=== PATIENT | female | born 1975 | race American Indian/Alaskan Native ===

== ENCOUNTER 2016-05-22 07:46 | Inpatient (IN) | payer MEDICAID ==
[2016-05-22 11:24] LABS: Hemoglobin 10.3 gm/dl (10.1-14.3); Mean Corpuscular HGB Conc 32 % (30-34); Mean Corpuscular Volume 78 fl (79-97); Platelet Count 219 K/mm3 (140-440); Red Blood Count 4.08 M/mm3 (3.65-5.03); Red Cell Distribution Width 16.4 % (13.2-15.2); White Blood Count 8.2 K/mm3 (4.5-11.0)
[2016-05-22] MEDS ORDERED: PITOCin/NS 20 UNIT/1000ML DRIP 20 UNITS/1,000 ML BAG IV SCH ×2 (11:30→21:58)
[2016-05-22] MEDS ORDERED: SUBLIMAZE IV PRN (11:30)
[2016-05-22] MEDS ORDERED: STADOL IV PRN (11:30)
[2016-05-22] MEDS ORDERED: ePHEDrine SULFATE IV PRN ×2 (11:30→13:45)
[2016-05-22] MEDS ORDERED: PITOCin/NS 30 UNIT/500ML 30 UNITS/500 ML BAG IV SCH ×2 (11:30)
[2016-05-22] MEDS: LACTATED RINGERS 1,000 ML IV SCH ×2 (11:38→14:56)
[2016-05-22 11:39] LABS: Mean Corpuscular Hemoglobin 25 pg (28-32)
[2016-05-22] MEDS ORDERED: BRETHINE IVP PRN (12:00)
[2016-05-22] MEDS ORDERED: BRETHINE SUB-Q PRN (12:00)
[2016-05-22] MEDS ORDERED: XYLOCAINE 2% INFILTRATI ONE (12:00)
[2016-05-22] MEDS ORDERED: MINERAL OIL PO PRN (12:00)
--- NOTE | 2016-05-22 13:33 | History and Physical Report ---
<MARK CERRATO - Last Filed: 05/22/16 13:28> History of Present Illness Date of examination: 05/22/16 Date of admission: 05/22/16 07:46 History of present illness: 41 yo LMP EDC 05/26/16 at 39.3 weeks gestation presented this morning for induction of labor for IUGR. Second trimester entry into care at 16 weeks gestation. course complicated by AMA with [facility] xing't. Declined genetic screening. Limited care with practice, seeing [facility] consistently instead of [facility]. False positive of trichomonas. IUGR this with [facility] recommendation for induction. She is GBS negative Past History Past Medical History: no pertinent history, other (previous pregnany IUGR with induction of labor) Family/Genetic History: diabetes, hypertension Social history: no significant social history - Obstetrical History Expected Date of Delivery: 05/26/16 Actual Gestation: 39 Week(s) 3 Day(s) : 2 Para: 1 Number of Living Children: 1 Medications and Allergies Allergies Allergy/AdvReac Type Severity Reaction Status Date / Time No Known Allergies Allergy Verified 01/06/15 12:47 Home Medications Medication Instructions Recorded Confirmed Last Taken Type Ferrous Sulfate [Ferrous Sulfate] 325 mg PO DAILY 01/20/15 01/20/15 01/19/15 09: 00 History HYDROcodone/APAP 5-325 [[place] 1 each PO Q6HR PRN #20 tablet 01/20/15 Unknown Rx 5/325] Ibuprofen [Motrin] 800 mg PO Q8HR PRN #60 tablet 01/20/15 Unknown Rx Vit-Fe Fumar-FA [ 1 tab PO QDAY 01/20/15 01/20/15 01/19/15 09: 00 History Vitamin] Active Meds: Active Medications Butorphanol Tartrate (Stadol) 2 mg IV Q2H PRN PRN Reason: Pain , Severe (7-10) Ephedrine Sulfate (Ephedrine Sulfate) 10 mg IV Q2M PRN PRN Reason: Hypotension Stop: 05/22/16 21:00 Fentanyl (Sublimaze) 100 mcg IV Q2H PRN PRN Reason: Labor Pain Lactated Ringer's (Lactated Ringers) 1,000 mls @ 125 mls/hr IV DIRECT WALTER Last Admin: 05/22/16 11:38 Dose: 125 mls/hr Oxytocin/Sodium Chloride (Pitocin/Ns 20 Unit/1000ml Drip) 20 units in 1,000 mls @ 125 mls/hr IV DIRECT WALTER Oxytocin/Sodium Chloride (Pitocin/Ns 30 Unit/500ml) 30 units in 500 mls @ 4 mls /hr IV TITR WALTER PRN Reason: Protocol Last Titration: 05/22/16 13:26 Dose: 24 ml/hr, 24 mls/hr Oxytocin/Sodium Chloride (Pitocin/Ns 30 Unit/500ml) 30 units in 500 mls @ 1 mls /hr IV TITR WALTER; 1 MILLIUNITS/MIN PRN Reason: Protocol Mineral Oil (Mineral Oil) 30 ml PO QHS PRN PRN Reason: Constipation Review of Systems All systems: negative - Vital Signs Vital signs: Vital Signs Temp Resp 97.5 F L 16 05/22/16 08:00 05/22/16 08:00 Temp Pulse Resp BP Pulse Ox 97.5 F L 86 16 111/60 99 05/22/16 08:00 05/22/16 12:50 05/22/16 08:00 05/22/16 12:11 05/22/16 12:50 - Physical Exam Abdomen: Positive: normal appearance Genitourinary (Female): Positive: normal external genitalia - Obstetrical FHR: category 1 Uterine Contraction Monitor Mode: External Cervical Dilatation: 3 Cervical Effacement Percentage: 50 station: -4 Uterine Contraction Frequency (min): 2-3 Uterine Contraction Duration: 40-60 Uterine Contraction Pattern: Regular Results Result Diagrams: 05/22/16 10:45 Abnormal lab results 05/22/16 Range/Units 10:45 MCV 78 L (79-97) fl MCH 25 L (28-32) pg RDW 16.4 H (13.2-15.2) % All other labs normal. Assessment and Plan A: IUP at 39.3 weeks gestation IUGR Induction of labor Inconclusive U/S for presentation, however VE vtx P: U/s per tech <JACKIE LANE - Last Filed: 05/22/16 17:26> History of Present Illness Date of admission: 05/22/16 07:46 Chief complaint: Induction of Labor Past History Past Medical History: no pertinent history, other (previous IUGR with induction of labor) Past Surgical History: no surgical history Family/Genetic History: diabetes, hypertension Social history: no significant social history - Obstetrical History Hx # Term Pregnancies: 1 Number of Pregnancies: 0 Spontaneous Abortions: 0 Induced : 0 Medications and Allergies Active Meds: Active Medications Butorphanol Tartrate (Stadol) 2 mg IV Q2H PRN PRN Reason: Pain , Severe (7-10) Ephedrine Sulfate (Ephedrine Sulfate) 10 mg IV Q2M PRN PRN Reason: Hypotension Stop: 05/22/16 21:00 Fentanyl (Sublimaze) 100 mcg IV Q2H PRN PRN Reason: Labor Pain Lactated Ringer's (Lactated Ringers) 1,000 mls @ 125 mls/hr IV DIRECT WALTER Last Admin: 05/22/16 14:56 Dose: 125 mls/hr Oxytocin/Sodium Chloride (Pitocin/Ns 20 Unit/1000ml Drip) 20 units in 1,000 mls @ 125 mls/hr IV DIRECT WALTER Oxytocin/Sodium Chloride (Pitocin/Ns 30 Unit/500ml) 30 units in 500 mls @ 4 mls /hr IV TITR WALTER PRN Reason: Protocol Last Titration: 05/22/16 13:26 Dose: 24 ml/hr, 24 mls/hr Oxytocin/Sodium Chloride (Pitocin/Ns 30 Unit/500ml) 30 units in 500 mls @ 1 mls /hr IV TITR WALTER; 1 MILLIUNITS/MIN PRN Reason: Protocol Fentanyl/Bupivacaine/Sodium Chlor (Fentanyl-Bupiv 2 Mcg/Ml-0.125%) 200 mcg in 100 mls @ 12 mls/hr EPIDURAL TITR WALTER PRN Reason: Protocol Last Admin: 05/22/16 15:55 Dose: 12 mls/hr Mineral Oil (Mineral Oil) 30 ml PO QHS PRN PRN Reason: Constipation Review of Systems All systems: negative - Vital Signs Vital signs: Vital Signs Temp Resp 97.5 F L 16 05/22/16 08:00 05/22/16 08:00 Temp Pulse Resp BP Pulse Ox 97.5 F L 85 16 123/74 99 05/22/16 08:00 05/22/16 16:50 05/22/16 08:00 05/22/16 16:50 05/22/16 15:53 - Physical Exam Abdomen: Positive: soft (obese, gravid ) Uterus: Positive: enlarged (gravid ) Extremities: Positive: normal - Obstetrical FHR: category 1 Uterine Contraction Monitor Mode: External Uterine Contraction Pattern: Regular Uterine Tone Measurement Phase: Resting Uterine Contraction Intensity: Moderate Results Result Diagrams: 05/22/16 10:45 Abnormal lab results 05/22/16 Range/Units 10:45 MCV 78 L (79-97) fl MCH 25 L (28-32) pg RDW 16.4 H (13.2-15.2) % All other labs normal.
[2016-05-22] MEDS ORDERED: NARCAN 2 MG/2 ML IV PRN (13:45)
--- NOTE | 2016-05-22 13:45 | Anesthesia Consultation ---
Anesthesia Consult and Med Hx Date of service: 05/22/16 - Airway Anesthetic Teeth Evaluation: Good ROM Head & Neck: Adequate Mental/Hyoid Distance: Adequate Mallampati Class: Class III Intubation Access Assessment: Possibly Difficult - Pre-Operative Health Status ASA Pre-Surgery Classification: ASA3 Proposed Anesthetic Plan: General, Spinal - Pulmonary Hx Asthma: No COPD: No Hx Pneumonia: No - Cardiovascular System Hx Hypertension: No - Central Nervous System Hx Seizures: No Hx Psychiatric Problems: No - Endocrine Hx Renal Disease: No Hx End Stage Renal Disease: No Hx Hypothyroidism: No Hx Hyperthyroidism: No - Hematic Hx Anemia: No Hx Sickle Cell Disease: No - Other Systems Hx Alcohol Use: Yes (before , occasionally) Hx Obesity: Yes (Morbid obesity)
[2016-05-22] MEDS ORDERED: fentaNYL-BUPIV 2 MCG/ML-0.125% 200 MCG/100 ML BAG EPIDURAL SCH (14:00)
[2016-05-22] MEDS ORDERED: XYLOCAINE MPF 2% ONE (16:16)
[2016-05-22] MEDS ORDERED: ZOFRAN ONE (16:29)
[2016-05-22] MEDS ORDERED: ZOFRAN IV ONE (16:37)
--- NOTE | 2016-05-22 17:27 | Event Note ---
Date: 05/22/16 Pt more comfortable with epidural. SVE: 100/0 + large forebag. AROM- clear fluid. Category II tracing. Continue routine intrapartum care. Close monitoring of maternal and status.
[2016-05-22] MEDS ORDERED: PEPCID IV SCH (18:00)
--- NOTE | 2016-05-22 18:21 | Procedure Note ---
OB Delivery Note - Delivery Date of Delivery: 05/22/16 Surgeon: JACKIE LANE Estimated blood loss: 300cc - Vaginal Delivery presentation: vertex Delivery position: OA Intrapartum events: decreased FHT variability, mult.variable deceleratio Delivery induction: oxytocin Delivery augmentation: pitocin Delivery monitor: external FHT, external uterine Route of delivery: Delivery placenta: spontaneous Delivery cord: 3 umbilical vessels, other (body cord) Episiotomy: none Delivery laceration: 1st degree Delivery repair: vicryl Anesthesia: epidural Delivery comments: Pt progressed to complete/complete/+2 and pushed to deliver a viable male over intact perineum via under epidural anesthesia. Head delivered quickly followed by shoulders and body. bulb suctioned at perineum. Cord clamped and cut and handed to nurse in attendance. Placenta delivered spontaneously (intact). Vaginal and perineum explored. First degree perineal laceration repaired with two [id number] of 3-0 Vicryl. Hemostasis noted. EBl 300 mL. - A at 1 minute: 8 at 5 minutes: 9 Gender: Male (2725g (6lb 0oz))
[2016-05-22] MEDS ORDERED: BENADRYL PO PRN (21:58)
[2016-05-22] MEDS ORDERED: PHENERGAN PO PRN (21:58)
[2016-05-22] MEDS ORDERED: TYLENOL PO PRN (21:58)
[2016-05-22] MEDS ORDERED: ZOFRAN IV PRN (21:58)
[2016-05-22] MEDS ORDERED: DERMOPLAST TP PRN (21:58)
[2016-05-22] MEDS ORDERED: DULCOLAX PR PRN (21:58)
[2016-05-22] MEDS ORDERED: NORCO 5/325 PO PRN (21:58)
[2016-05-22] MEDS ORDERED: MILK OF MAGNESIA PO PRN (21:58)
[2016-05-22] MEDS ORDERED: SODIUM CHLORIDE FLUSH SYRINGE 10 ML IV NR (21:58)
[2016-05-22] MEDS ORDERED: LANSINOH TP PRN (21:58)
[2016-05-22] MEDS ORDERED: TUCKS PAD TP PRN (21:58)
[2016-05-22] MEDS ORDERED: PHENERGAN PR PRN (21:58)
[2016-05-22] MEDS ORDERED: PEPCID PO SCH (22:00)
[2016-05-23] MEDS: FEOSOL PO SCH ×2 (01:29→10:15)
[2016-05-23] MEDS: MOTRIN PO SCH ×3 (06:00→12:00)
[2016-05-23] MEDS ORDERED: BOOSTRIX IM ONE (06:00)
[2016-05-23] MEDS ORDERED: M-M-R II VACCINE SUB-Q ONE (06:00)
--- NOTE | 2016-05-23 07:54 | Progress Note ---
Assessment and Plan O: VSS AF PP H/H: pending A:StabLe PP Day 1 P: Routine PP orders Subjective - Subjective Date of service: 05/23/16 Interval history: 41 yo LMP EDC 05/26/16 at 39.3 weeks gestation presented this morning for induction of labor for IUGR. Second trimester entry into care at 16 weeks gestation. course complicated by AMA with [facility] comang't. Declined genetic screening. Limited care with practice, seeing [facility] consistently instead of [facility]. False positive of trichomonas. IUGR this with [facility] recommendation for induction. She is GBS negative Patient reports: appetite normal, voiding normally, pain well controlled, flatus , ambulating normally : doing well Objective - Vital Signs Latest vital signs: Vital Signs Temp Pulse Pulse Resp BP BP Pulse Ox 05/23/16 05:30 97.8 F 85 18 99/58 05/23/16 01:35 99.6 F 96 H 18 106/68 05/22/16 20:38 99.3 F 93 H 18 116/76 05/22/16 19:34 92 H 138/83 05/22/16 19:27 85 99 05/22/16 19:22 97 H 99 05/22/16 19:19 90 130/86 05/22/16 19:17 86 100 05/22/16 19:12 84 100 05/22/16 19:07 85 100 05/22/16 19:04 85 144/93 05/22/16 19:02 88 100 05/22/16 18:57 86 100 05/22/16 18:52 84 100 05/22/16 18:49 75 139/87 05/22/16 18:47 84 100 05/22/16 18:42 78 100 05/22/16 18:37 76 100 05/22/16 18:35 79 125/81 05/22/16 18:32 88 100 05/22/16 18:23 73 119/67 05/22/16 18:15 97.3 F L 20 05/22/16 16:50 85 123/74 05/22/16 16:36 98 H 104/59 05/22/16 16:19 77 122/67 05/22/16 16:00 84 140/62 05/22/16 15:55 84 149/72 05/22/16 15:53 89 99 05/22/16 15:49 96 H 147/81 05/22/16 15:48 95 H 98 05/22/16 15:45 100 H 162/94 05/22/16 15:43 94 H 98 05/22/16 15:41 92 H 140/79 05/22/16 15:38 82 99 05/22/16 15:35 89 121/77 05/22/16 15:33 101 H 99 05/22/16 15:30 95 H 145/78 05/22/16 15:28 78 97 05/22/16 15:23 85 123/81 97 05/22/16 15:21 83 136/79 05/22/16 15:18 83 128/68 99 05/22/16 15:17 85 129/69 05/22/16 15:13 86 99 05/22/16 15:09 85 139/71 05/22/16 15:08 91 H 100 05/22/16 15:07 94 H 150/74 05/22/16 15:05 96 H 163/92 05/22/16 15:03 81 100 05/22/16 15:02 76 129/80 05/22/16 14:58 101 H 128/81 100 05/22/16 14:52 71 100 05/22/16 14:25 104 H 99 05/22/16 14:21 100 H 154/93 05/22/16 14:20 89 100 05/22/16 13:35 89 114/79 99 05/22/16 12:50 86 99 05/22/16 12:45 91 H 99 05/22/16 12:40 91 H 100 05/22/16 12:35 90 100 05/22/16 12:30 109 H 99 05/22/16 12:25 90 98 05/22/16 12:20 102 H 98 05/22/16 12:15 88 98 05/22/16 12:11 103 H 111/60 05/22/16 12:10 100 H 98 05/22/16 09:47 94 H 100 05/22/16 09:42 87 100 05/22/16 09:37 87 100 05/22/16 09:32 94 H 99 05/22/16 09:27 97 H 98 05/22/16 09:22 100 H 98 05/22/16 09:17 105 H 99 05/22/16 09:12 84 99 05/22/16 09:07 93 H 98 05/22/16 09:02 104 H 97 05/22/16 08:57 96 H 98 05/22/16 08:52 99 H 99 05/22/16 08:47 92 H 98 05/22/16 08:42 95 H 98 05/22/16 08:37 92 H 97 05/22/16 08:32 85 97 05/22/16 08:27 108 H 97 05/22/16 08:22 108 H 98 05/22/16 08:17 107 H 134/75 99 05/22/16 08:00 97.5 F L 16 Intake and Output 05/22/16 05/23/16 05/23/16 22:59 06:59 14:59 Intake Total 480 Output Total 400 400 Balance -400 80 Intake: Intake, Free Water 480 Output: Urine 400 400 Void 400 400 Other: Total, Output Amount 400 400 # Voids Void 1 Estimated Blood Loss 300 - Exam Breasts: Present: deferred Abdomen: Present: normal appearance, soft Uterus: Present: normal, firm, fundal height below umbilicus Extremities: Present: normal - Labs Labs: Abnormal lab results 05/22/16 Range/Units 10:45 MCV 78 L (79-97) fl MCH 25 L (28-32) pg RDW 16.4 H (13.2-15.2) %
--- NOTE | 2016-05-23 07:56 | Discharge Summary ---
Providers - Providers Date of Admission: 05/22/16 07:46 Date of discharge: 05/23/16 Attending physician: JACKIE LANE 05/22/16 21:58 Consult to Faucet Polisher [CONS] Routine Reason For Exam: assistance with , SNS Primary care physician: JACKIE LANE Hospitalization Reason for admission: induction of labor, IUP at term Delivery: Episiotomy: none Laceration: 1st degree Other procedures: none complications: none Discharge diagnosis: IUP at term delivered G[place] baby: male Condition at discharge: Good Disposition: DISCHARGED TO HOME OR SELFCARE Plan - Discharge Medications Prescriptions: Ferrous Sulfate [Feosol 325 MG tab] 325 mg PO BID #60 tablet HYDROcodone/APAP 5-325 [[place] 5/325] 1 each PO Q6HR PRN #30 tablet PRN Reason: Pain Ibuprofen [Motrin] 800 mg PO Q8HR PRN #60 tablet PRN Reason: Pain Vit-Fe Fumar-FA [ Vitamin] 1 tab PO QDAY #30 tablet - Provider Discharge Summary Activity: routine, no sex for 6 weeks, no heavy lifting 4 weeks, no strenuous exercise Diet: routine Instructions: routine Additional instructions: [] Smoking cessation referral if applicable(refer to patient education folder for contact #) [] Refer to [facility] Booklet Call your doctor immediately for: * Fever > 100.5 * Heavy vaginal bleeding ( >1 pad per hour) * Severe persistent headache * Shortness of breath * Reddened, hot, painful area to leg or breast * Drainage or odor from incision. * Keep incision clean and dry at all times and follow doctor's instructions regarding bathing/showering - Follow up plan Follow up: JACKIE LANE MD [Primary Care Provider] - MARK CERRATO CNM [Advanced Practice Nurse] - (RTO 4 weeks and schedule circumcision)
[2016-05-23 09:11] LABS: Hematocrit 27.9 % (30.3-42.9); Hemoglobin 8.9 gm/dl (10.1-14.3)
[2016-05-23] MEDS ORDERED: PRENATAL VITAMIN PO SCH (10:00)
[2016-05-23] MEDS ORDERED: PROCTOFOAM PR PRN (10:00)
--- NOTE | 2016-05-23 11:38 | Ultrasound Report ---
Gestation: Single Position: cephalic Heart Rate: 151 BPM Registration at 39 weeks and 3 days.
--- NOTE | 2016-05-23 13:27 | Progress Note ---
Subjective Date of service: 05/23/16 Interval history: 1st day after normal vaginal delivery Patient is in the bed, comfortable. Pain is mostly controlled with pain meds. Ambulated well. No nausea or vomiting. No residual neurological deficit. No anesthesia complications Objective - Constitutional Vitals: Vital Signs - 12hr 05/23/16 05/23/16 05/23/16 01:35 05:30 08:45 Temperature 99.6 F 97.8 F 97.9 F Pulse Rate [ 96 H 85 82 Left] Respiratory 18 18 16 Rate Blood Pressure 106/68 99/58 111/68 [Left Arm] - Labs CBC & Chem 7: 05/23/16 07:56 Labs: Abnormal lab results 05/23/16 Range/Units 07:56 Hgb 8.9 L (10.1-14.3) gm/dl Hct 27.9 L (30.3-42.9) %
[2016-05-23 19:28] VITALS: BP 123/75
== END 2016-05-23 21:00 | disposition home or self-care (01) | DRG 775 ==
LOC: LD 07:46 → OB 20:41
PROVIDERS: ADMIT Obstetrics & Gynecology; ATTEND Obstetrics & Gynecology
PROC: 10E0XZZ Delivery of Products of Conception, External Approach (ICD-10-PCS; principal; 2016-05-22)
PROC: 0HQ9XZZ Repair Perineum Skin, External Approach (ICD-10-PCS; 2016-05-22)
PROC: 3E0S3CZ (ICD-10-PCS; 2016-05-22)
PROC: 00HU33Z Insertion of Infusion Device into Spinal Canal, Percutaneous Approach (ICD-10-PCS; 2016-05-22)
PROC: 3E033VJ Introduction of Other Hormone into Peripheral Vein, Percutaneous Approach (ICD-10-PCS; 2016-05-22)
DX: O76 Abnormality in fetal heart rate and rhythm complicating labor and delivery (principal); O99.214 Obesity complicating childbirth; O70.0 First degree perineal laceration during delivery; O36.5930 Maternal care for other known or suspected poor fetal growth, third trimester, not applicable or unspecified; E66.01 Morbid (severe) obesity due to excess calories; Z3A.39 39 weeks gestation of pregnancy; Z37.0 Single live birth; Z68.41 Body mass index [BMI] 40.0-44.9, adult; Z83.3 Family history of diabetes mellitus; Z82.49 Family history of ischemic heart disease and other diseases of the circulatory system
CPT/HCPCS: 36415; 76815; 85014; 85018; 85027; 86850; 86900; 86901; 88307; 99211; G0463; J2405; J2590; J7120